=== PATIENT | female | born 1990 | race Caucasian/White ===

== ENCOUNTER 2018-11-26 09:23 | Emergency (ER) | payer SELFPAY ==
[2018-11-26 09:27] VITALS: BP 149/89
--- NOTE | 2018-11-26 09:41 | ER Document Report ---
ED General - General Chief Complaint: Sore Throat Stated Complaint: COUGH,CONGESTION,NAUSEA Time Seen by Provider: 11/26/18 09:36 Primary Care Provider: LISA NEWELL MD [ACTIVE STAFF] - Follow up in 1 week (FOR ENT FOLLOW UP) TRAVEL OUTSIDE OF THE [place] IN LAST 30 DAYS: No - HPI Notes: 28-year-old female to the emergency department with 1 month of productive cough, sore throat, swollen tonsils. She states that she is also had having intermittent nausea and vomiting. Her last episode of vomiting was yesterday. She denies possibility for . She states that her last menstrual period was on 30 October. She admits to subjective fevers but she has not measured them. States that she has been exposed to mold at her workplace and she states that she is notify the appropriate people for it. Denies any other complaints. She has not really been taking anything for her symptoms other than eating Sami yogurt and taking probiotics. - Related Data Allergies/Adverse Reactions: No Known Allergies Allergy (Verified 11/26/18 09:34) Past Medical History - General Information source: Patient - Social History Smoking Status: Current Every Day Smoker Chew tobacco use (# tins/day): No Frequency of alcohol use: Rare Drug Abuse: None Family History: Reviewed & Not Pertinent Patient has suicidal ideation: No Patient has homicidal ideation: No Review of Systems - Review of Systems Constitutional: Chills, Fever, Malaise EENT: Nose congestion, Throat pain. denies: Ear pain, Throat swelling, Mouth swelling Cardiovascular: denies: Chest pain, Orthopnea, Dyspnea, Syncope, Dizziness, Lightheaded Respiratory: See HPI, Cough, Sputum. denies: Short of breath, Wheezing Gastrointestinal: See HPI, Nausea, Vomiting. denies: Abdominal pain, Diarrhea Genitourinary: No symptoms reported Female Genitourinary: No symptoms reported Musculoskeletal: No symptoms reported Skin: No symptoms reported Hematologic/Lymphatic: No symptoms reported Neurological/Psychological: No symptoms reported -: Yes All other systems reviewed and negative Physical Exam - Vital signs Vitals: Temp Pulse Resp BP Pulse Ox 98.7 F 97 18 149/89 H 98 11/26/18 09:27 11/26/18 09:27 11/26/18 09:27 11/26/18 09:27 11/26/18 09:27 Interpretation: Normal - General General appearance: Appears well, Alert In distress: None - HEENT Head: Normocephalic, Atraumatic Eyes: Normal Pupils: PERRL Ears: Normal External canal: Normal Tympanic membrane: Normal Sinus: Normal Nasal: Clear rhinorrhea, Other - noted raw,chafed nares from runny nose. nasal mucosa is erythematous and mildly edematous.. No: Purulent discharge Mouth/Lips: Normal Mucous membranes: Normal Pharynx: Normal, Erythema, Tonsillar hypertrophy - bilateral symmetric tonsillar hypertrophy with no felicia exudates. There is no evidence for peritonsillar abscess, there is no hot potato voice. No Alfredo's angina, airway is grossly patent, no drooling.. No: Peritonsillar abscess, Retropharyngeal abscess, Uvular edema, Potential airway comprom. Neck: Normal, Supple. No: Meningismus - Respiratory Respiratory status: No respiratory distress Chest status: Nontender Breath sounds: Nonproductive cough Chest palpation: Normal - Cardiovascular Rhythm: Regular Heart sounds: Normal auscultation Murmur: No - Abdominal Inspection: Normal Distension: No distension Bowel sounds: Normal Tenderness: Nontender Organomegaly: No organomegaly - Neurological Neuro grossly intact: Yes Cognition: Normal Orientation: AAOx4 [place] Coma Scale Eye Opening: Spontaneous [place] Coma Scale Verbal: Oriented Astrid Coma Scale Motor: Obeys Commands [place] Coma Scale Total: 15 Speech: Normal Motor strength normal: LUE, RUE, LLE, RLE Sensory: Normal - Psychological Associated symptoms: Normal affect, Normal mood - Skin Skin Temperature: Warm Skin Moisture: Dry Skin Color: Normal Course - Re-evaluation Re-evalutation: Microbiology 11/26/18 10:02 Throat Culture - Final Throat NORMAL [facility] Laboratory 11/26/18 11/26/18 09:40 09:54 Monotest NEGATIVE Group A Strep Rapid NEGATIVE Chest X-Ray 11/26/18 09:41 IMPRESSION: No focal consolidation or other evidence of acute cardiopulmonary process. Impression: URI, pharyngitis -- exposure to mold. Noted XR and rapid strep results. WIll start on Steroids and cough medicine to ease in patient's symptomatic relief. She agrees with the plan. - Vital Signs Vital signs: Temp Pulse Resp BP Pulse Ox 98.7 F 97 18 149/89 H 98 11/26/18 09:27 11/26/18 09:27 11/26/18 09:27 11/26/18 09:27 11/26/18 09:27 - Diagnostic Test Radiology reviewed: Reports reviewed Discharge - Discharge Clinical Impression: Bronchitis, Pharyngitis Condition: Stable Disposition: HOME, SELF-CARE Instructions: Bronchitis ([facility]), Sore Throat ([facility]) Additional Instructions: FOLLOW UP WITH EAR, NOSE, THROAT SPECIALIST LISTED. TAKE MEDICINES PRESCRIBED. YOUR XRay DID NOT SHOW A PNEUMONIA TODAY AND YOUR MONO TESTING WELL RAPID STREP WERE NEGATIVE. COMPLETE ALL STEROIDS. USE COUGH MEDICINES PRESCRIBED. RETURN IF WORSE. Prescriptions: Benzonatate [Tessalon Perles 100 mg Capsule] 100 mg PO Q8HP PRN #40 capsule PRN Reason: Methylprednisolone [Medrol Dosepack (4 mg/Tab) 21 Tab/Dosepak] 4 mg PO ASDIR PRN #21 tab.ds.pk PRN Reason: Cetirizine HCl [Zyrtec 10 mg Tablet] 1 tab PO DAILY #30 tablet Forms: Return to Work Referrals: LISA NEWELL MD [ACTIVE STAFF] - Follow up in 1 week (FOR ENT FOLLOW UP)
--- NOTE | 2018-11-26 10:17 | RADIOLOGY REPORT (SQ) ---
EXAM DESCRIPTION: CHEST 2 VIEWS COMPLETED DATE/TIME: 11/26/2018 10:04 am REASON FOR STUDY: cough for one month COMPARISON: None. EXAM PARAMETERS: NUMBER OF VIEWS: two views TECHNIQUE: Digital Frontal and Lateral radiographic views of the chest acquired. RADIATION DOSE: NA LIMITATIONS: none FINDINGS: LUNGS AND PLEURA: No opacities, masses or pneumothorax. No pleural effusion. MEDIASTINUM AND HILAR STRUCTURES: No masses or contour abnormalities. HEART AND VASCULAR STRUCTURES: Heart normal size. No evidence for failure. BONES: No acute findings. HARDWARE: None in the chest. OTHER: No other significant finding. IMPRESSION: No focal consolidation or other evidence of acute cardiopulmonary process. TECHNICAL DOCUMENTATION: JOB ID: [id number] [employer]- All Rights Reserved Reading location - IP/workstation name: [email or web address]
== END 2018-11-26 10:30 | disposition home or self-care (01) ==
LOC: ER 09:23
DX: J40 Bronchitis, not specified as acute or chronic (principal); J02.9 Acute pharyngitis, unspecified; R05 Cough; R09.81 Nasal congestion; R11.0 Nausea; R50.9 Fever, unspecified; F17.200 Nicotine dependence, unspecified, uncomplicated
CPT/HCPCS: 36415; 71046; 86308; 87070; 87880; 99283